=== PATIENT | male | born 1955 ===

== ENCOUNTER 2022-10-11 08:30 | Inpatient (IN) | payer OTHER ==
[~2022-10-11] VITALS: Ht 177.8 cm; Wt 63.5 kg
[2022-10-11] MEDS ORDERED: ZOCOR20 MG PO (10:31)
[2022-10-11] MEDS ORDERED: FOSAMAX70 MG PO (10:32)
[2022-10-11] MEDS ORDERED: ESTAZOLAM2 MG PO (10:32)
[2022-10-19] MEDS ORDERED: TRAM1TAB98 PO (10:20)
[2022-10-19] MEDS ORDERED: PEPCID AC20 MG PO (10:20)
[2022-10-19] MEDS ORDERED: INTESTINEX680 M1 PO (10:21)
== END 2022-10-19 22:57 | disposition home or self-care (01) | DRG 331 ==
LOC: O/R 10-16 05:42 → SURG 10-16 08:30 → SURH 10-16 13:14 → SURG 10-16 15:15 → SURH 10-19 22:57
PROVIDERS: ADMIT Surgery; ATTEND Surgery
PROC: 07BB4ZZ Excision of Mesenteric Lymphatic, Percutaneous Endoscopic Approach (ICD-10-PCS; 2022-10-16)
PROC: 0DTF4ZZ Resection of Right Large Intestine, Percutaneous Endoscopic Approach (ICD-10-PCS; principal; 2022-10-16 15:15)
DX: D12.0 Benign neoplasm of cecum (principal); K59.01 Slow transit constipation; R59.0 Localized enlarged lymph nodes; Z20.822 Contact with and (suspected) exposure to COVID-19